=== PATIENT | male | born 1945 | race American Indian/Alaskan Native ===

== ENCOUNTER 2019-02-13 10:27 | Day surgery (SDC) | payer OTHER ==
[2019-02-13] MEDS ORDERED: NACL 0.9% 1000 ML 1,000 ML IV SCH (10:40)
[2019-02-13] MEDS ORDERED: DIPRIVAN 10 MG/ML IV ONE ×2 (11:56)
--- NOTE | 2019-02-13 12:43 | Anesthesia Day of Surgery ---
Anesthesia Day of Surgery - Day of Surgery Patient Examined: Yes Patient H&P Reviewed: Yes Patient is NPO: Yes
--- NOTE | 2019-02-13 12:43 | Anesthesia Consultation ---
Anesthesia Consult and Med Hx Date of service: 02/13/19 - Airway Anesthetic Teeth Evaluation: Good ROM Head & Neck: Adequate Mental/Hyoid Distance: Adequate Mallampati Class: Class II Intubation Access Assessment: Probably Good - Pulmonary Exam CTA: Yes - Cardiac Exam Cardiac Exam: RRR - Pre-Operative Health Status ASA Pre-Surgery Classification: ASA1 Proposed Anesthetic Plan: MAC - Pulmonary Hx Smoking: No - Cardiovascular System Hx Hypertension: No Hx Heart Attack/AMI: No - Central Nervous System CVA: No - Endocrine Hx Renal Disease: No Hx Liver Disease: No Hx Insulin Dependent Diabetes: No Hx Non-Insulin Dependent Diabetes: No Hx Thyroid Disease: No - Other Systems Hx Obesity: No
--- NOTE | 2019-02-13 13:12 | Operative Report ---
Operative Report Operative Report: Procedure: Colonoscopy with Submucosal Injection, Multiple Snare polypectomies, Ablation of polyp base, Multiple Hemoclip applications. Attending physician: Wally Mcclellan M.D. Vp [employer] Marketing: Wally Mcclellan M.D. Indication: Patient is a 73-year-old male who presents for evaluation with a colonoscopy, because of positive fecal immunochemical test. This colonoscopy serves to evaluate patient so that treatment may be directed based on the findings. Consent: Informed consent was obtained after advising the patient and family regarding nature of this procedure, its indications, potential benefits as well as possible complications including but not limited to bleeding perforation and adverse reaction to medication, infection as well as other cardiopulmonary complications. An informed written and verbal consent was then obtained after due opportunity was provided for questions and answers. Monitoring: Patient was monitored continuously with pulse oximetry and electrocardiographic recordings as well as blood pressure recordings. Vital signs remained stable throughout this procedure with no untoward events. Preoperative assessment: Patient was assessed immediately prior to this procedure for capacity to tolerate monitored anesthesia care and moderate sedation as well as general anesthesia. Patient's ASA classification is 2, Mallampati class is 2, Hyomental distance is 3. Instrument: Olympus video colonoscope CF-HQ 190L Medications: Propofol given intravenously in divided doses. For details please refer to anesthesia records. Description of procedure: Patient was placed in the left lateral decubitus position after achieving sedation, a digital rectal examination was performed following which the colonoscope was introduced into the anal verge and advanced to the cecum which was identified by the cecal valve, the appendiceal orifice, as well as by the cecal strap and direct transillumination. The colonoscope was subsequently withdrawn with careful inspection of all mucosal surfaces. Patient tolerated this procedure well and was subsequently taken to the recovery room. The following findings were noted. Findings: [place] bowel preparation scale score : 4. : Patient had densely adherent thick liquid stool in the cecum and ascending colon which was not readily removable by irrigation with a score of 1, also in the transverse colon with a score of 1 and also in the descending and sigmoid colon and rectum with a scale of 2. The overall preparation therefore deemed inadequate with a scale score of less than 6. The withdrawal time from the cecum was greater than 6 minutes. Patient had diverticulosis of mild severity involving the ascending colon transverse colon descending colon and sigmoid colon. Patient had a broad-based flat 1.5 cm with adherent mucus suggesting that it is a serrated polyp which was elevated with submucosal injection of saline and removed by snare electrocautery and retrieved. The base of the polyp was ablated and a Hemoclip was applied over the polypectomy defect. Patient had another sessile 1 cm polyp in the ascending colon which was elevated with submucosal injection of saline, removed by snare electrocautery and Hemoclip again applied over the polypectomy defect. On a retroflexed view of the anal verge, patient had internal hemorrhoids. Impression: Multiple ascending colon polyps status post submucosal injection and snare polypectomies with ablation of polyp base and application of multiple hemoclips . Inadequate colonoscopic preparation and retained stool. Diverticulosis. Internal hemorrhoids. Plan: Follow pathology report. High-fiber diet. Repeat colonoscopy in 6-12 months year due to poor colonoscopic preparation.
--- NOTE | 2019-02-13 13:13 | Discharge Summary ---
Short Stay Discharge Plan Activity: advance as tolerated Weight Bearing Status: Weight Bear as Tolerated Diet: regular Additional Instructions: Post Sedation D/C Instructions When you return home you may resume your regular diet unless otherwise directed. -Go directly home from the hospital and rest quietly. You may resume normal activities tomorrow. -Do NOT drive, return to work, operate any machinery or make any important personal or business decisions today. -Do NOT drink any alcohol or take nerve or sleeping drugs. They add to the effects of the medicine still present in your body. NO Aspirin or Aspirin products for 4 days. Follow up with: [facility] [Primary Care Provider] - 7 Days
[2019-02-13 13:28] VITALS: BP 128/65
[2019-02-13] MEDS ORDERED: XYLOCAINE MPF 2% ONE (14:00)
== END 2019-02-13 10:28 | disposition home or self-care (01) ==
LOC: GIO 10:27
PROVIDERS: ATTEND Internal Medicine Gastroenterology
DX: D12.2 Benign neoplasm of ascending colon (principal); K64.8 Other hemorrhoids; K57.30 Diverticulosis of large intestine without perforation or abscess without bleeding; Z79.899 Other long term (current) drug therapy; Z88.0 Allergy status to penicillin; Z98.890 Other specified postprocedural states
CPT/HCPCS: 88305; J2704; J7030